=== PATIENT | female | born 1995 | race Asian ===

== ENCOUNTER 2016-12-10 17:46 | Emergency (ER) | payer OTHER ==
[~2016-12-10] VITALS: Ht 157.5 cm; Wt 77.1 kg
[2016-12-10 18:38] LABS: PLATELET COUNT 227 K/uL (152-353)
[2016-12-10 18:47] LABS: POTASSIUM 3.7 mmol/L (3.6-5.2); SODIUM 133 mmol/L (136-145)
== END 2016-12-10 20:22 | disposition home or self-care (01) ==
LOC: ED 17:46
PROVIDERS: Family Medicine
DX: R10.32 Left lower quadrant pain (principal); K59.09 Other constipation; R10.2 Pelvic and perineal pain; Z33.1 Pregnant state, incidental
CPT/HCPCS: 36415; 80053; 81000; 81025; 84702; 85027; 99283